=== PATIENT | female | born 1980 | race Caucasian/White ===

== ENCOUNTER 2022-09-09 16:28 | Emergency (ER) | payer BC, SELFPAY ==
--- NOTE | ~2022-09-09 | XR_ITS ---
XR chest 2V DATE: 09/09/2022 17:20 INDICATION: Chest pain TECHNIQUE: PA and lateral views COMPARISON: None FINDINGS: LAP-BAND is noted Status post cholecystectomy. Normal heart size. No hilar or mediastinal enlargement. No pulmonary infiltrate or consolidation, ple ural effusion or pulmonary vascular congestion or pneumothorax is detected. IMPRESSION: No active cardiopulmonary disease Reviewed, dictated and finalized at location A.
[2022-09-09 16:36] VITALS: BP 116/75; PULSE 69; RESP 18; TEMP 36.9; O2SAT 100
--- NOTE | 2022-09-09 16:36 | ECG_ITS ---
Measurements Intervals [place] Rate: 72 P: 70 NV: 140 QRS: 52 QRSD: 75 T: 48 QT: 368 QTc: 404 Interpretive Statements SINUS RHYTHM LOW QRS VOLTAGE IN PRECORDIAL LEADS BORDERLINE ECG NO PREVIOUS ECG AVAILABLE FOR COMPARISON Electronically Signed On 09-09-2022 21:12:13 CDT by Samuel Soto D.O.
[2022-09-09 16:59] LABS: Basophils Absolute Auto 0.1 K/mm3 (0.0-0.1); Basophils Percent Auto 0.6 % (0.2-1.2); Eosinophils Absolute Auto 0.5 K/mm3 (0-0.3); Eosinophils Percent Auto 3.8 % (0-4.4); Hematocrit 39.5 % (37.0-47.0); Hemoglobin 12.7 g/dL (12.0-15.0); Immature Granulocyte Absolute 0.03 K/mm3 (0.00-0.031); Immature Granulocyte Percent A 0.2 % (0-0.5); Lymphocytes Absolute Auto 1.75 K/mm3 (0.9-3.2); Lymphocytes Percent Auto 13.1 % (18.3-44.2); Mean Corpuscular HGB Conc 32.2 g/dl (32-36); Mean Corpuscular Hemoglobin 27.4 pg (26-34); Mean Corpuscular Volume 85.3 fl (80-100); Mean Platelet Volume 9.4 fl (7.4-10.4); Monocytes Absolute Auto 0.8 K/mm3 (0.1-0.6); Monocytes Percent Auto 6.3 % (2.6-8.5); Neutrophils Absolute Auto 10.1 K/mm3 (1.3-6.7); Platelet Count Result 271 k/mm3 (150-375); Red Blood Count 4.63 M/mm3 (4.2-5.4); Red Cell Distribution Width 14.1 % (11.5-14.5); White Blood Count 13.3 K/mm3 (4.5-10.0)
[2022-09-09 17:09] LABS: Alanine Aminotransferase 15 U/L (6-35); Albumin Level 4.2 g/dL (3.5-5.1); Alkaline Phosphatase 73 U/L (38-126); Anion Gap 8 mmol/L (8-16); Aspartate Amino Transferase 25 U/L (14-36); Bilirubin,Total 0.7 mg/dL (0.2-1.3); Blood Urea Nitrogen 7 mg/dL (7-17); Carbon Dioxide 25 mmol/L (22-30); Chloride 102 mmol/L (98-107); Estimated CRCL calculation 84 ml/min; Estimated Glomerular Filt Rate > 60; Glucose 88 mg/dL (65-110); Lipase 47 U/L (23-300); Potassium 3.7 mmol/L (3.4-5.0); Sodium 135 mmol/L (137-145)
[2022-09-09 17:10] LABS: Partial Thromboplastin Time 29.7 SECONDS (22.3-36.8)
[2022-09-09 17:20] LABS: Troponin I < 0.012 ng/mL (0.000-0.034)
--- NOTE | 2022-09-09 18:09 | ED.GENADULT ---
HPI - General Adult General Chief complaint: Chest Pain Stated complaint: chest pain since Saturday Time Seen by Provider: 09/09/22 18:02 History of Present Illness HPI narrative: 42 year old female history of lap band presented with sore throat. Per patient, for the past 2 days she has been having sorethroat. Eating causes irritation from her throat going down her esophagus. She began having sternal chest discomfort going up into her throat, made worse with changes in position. Took ibuprofen without sufficient relief, so presented to the ED for further evaluation. She denied worsening with exertion, radiation, shortness of breath, abdominal pain, fevers/chills, nausea/vomiting, dysuria, cough. Is followed up by GI at [facility]. Last EGD 2 years ago, negative. Past Medical History: denied Past Surgical History: lap band Medications: denied Allergies: no known drug allergies Related Data Allergies Allergy/AdvReac Type Severity Reaction Status Date / Time No Known Allergies Allergy Verified 09/09/22 16:28 Review of Systems Review of Systems: See HPI Exam Narrative: General: Alert, calm and cooperative, no acute distress, phonating, sitting comfortably during visit HEENT: Pupils equal round and reactive to light, extra ocular movements intact, no conjunctival injection, head atraumatic, neck supple without meningismus, no oropharyngeal swelling, no erythema, handling secretions, no stridor, uvula midline Cardiovascular: Regular rate and rhythm, no visible jugular venous distension Respiratory: Lungs clear to auscultation bilaterally, no wheezing/rales/rhonchi Abdominal: soft, non-tender, non-distended, no guarding, no rebound/peritoneal signs, no costovertebral tenderness to palpation Back: no midline tenderness to palpation, no step offs Extremities: No edema, palpable peripheral pulses, warm, well perfused, no tenderness to bilateral calves Neurological: Alert, moving all extremities symmetrically, ambulating without deficit Course Reevaluation(s) Reevaluation #1: Patient reassessed; reporting resolution of all symptoms. Physical exam benign, sitting comfortably, vitals stable. Date: 09/09/22 Time: 18:54 Vital Signs Vital signs: Vital Signs Temperature 98.4 F 09/09/22 16:36 Pulse Rate 69 09/09/22 16:36 Respiratory Rate 18 09/09/22 16:36 Blood Pressure 116/75 09/09/22 16:36 Pulse Oximetry 100 09/09/22 16:36 Oxygen Delivery Room Air 09/09/22 16:36 Temperature 98.4 F 09/09/22 16:36 Pulse Rate 69 09/09/22 16:36 Respiratory Rate 18 09/09/22 16:36 Blood Pressure 116/75 09/09/22 16:36 Pulse Oximetry 100 09/09/22 16:36 Oxygen Delivery Room Air 09/09/22 16:36 Medical Decision Making MDM Narrative Medical decision making narrative: 42 year old female history of lap band presented with sore throat and discomfort with food going down. Physical exam benign, sitting in bed comfortably, oropharynx clear, handling secretions, no stridor, vitals stable. EKG no ischemic changes. CXR clear. History and exam suggestive of acid reflux in the setting of history of lap band. Patient given GI cocktail with resolution of symptoms. Patient has close follow up with GI. Blood work reviewed, noted to be unremarkable. Physical exam benign, vitals stable. The patient tolerated oral intake, is alert and oriented, speaking with clear speech, ambulated with steady gait, and has remained hemodynamically stable throughout the ED visit. Findings on imaging communicated to patient and counseled to follow up with primary care provider. Has close follow up with GI at [facility]. Areas of diagnostic uncertainty discussed and strict return precautions shared with patient; encouraged to return to the emergency department if symptoms returned or worsened. The patient is safe to be discharged with follow up, provided she abide by the verbalized and written instructions, to which the patient
[2022-09-09] MEDS: FAMOTIDINE 20 MG TABLET PO (18:17)
[2022-09-09] MEDS: MAG HYDROX/AL HYDROX/SIMETH 30 ML UDC PO (18:17)
[2022-09-09] MEDS: LIDOCAINE HCL 2% VISC SOLN 15 ML UDC PO (18:17)
[2022-09-09 18:59] VITALS: BP 103/80; PULSE 72; RESP 18; O2SAT 100
== END 2022-09-09 19:00 | disposition home or self-care (01) ==
PROVIDERS: Emergency Medicine; Emergency Provider Emergency Medicine; PCP Family Medicine
DX: J02.9 Acute pharyngitis, unspecified (principal); Z98.84 Bariatric surgery status; R94.31 Abnormal electrocardiogram [ECG] [EKG]
CPT/HCPCS: 36415; 71046; 80053; 83690; 84484; 85025; 85610; 85730; 93005; 99284; A9270